=== PATIENT | female | born 1970 | race Caucasian/White ===

== ENCOUNTER → 2016-09-02 | Outpatient (CLI) | payer OTHER ==
[~2016-09-02] MED LIST: OPTIRAY 320 IV PRN
--- NOTE | 2016-09-02 09:48 | DIAGNOSTIC IMAGING REPORT ---
CT UROGRAM CLINICAL HISTORY: Hematuria. Urgency incontinence. Urinary frequency. COMPARISON STUDY: No priors. TECHNIQUE: Before and following the IV administration of 119 cc of Optiray 320, CT urogram of the abdomen and pelvis is performed from the lung bases to the proximal femora. Images are reviewed in the axial, sagittal, and coronal planes. IV contrast was administered without complication. CT DOSE: 1977.42 mGycm FINDINGS: Lung bases: The heart is normal in size and without pericardial effusion. Air trapping is suggested at the lung bases. No airspace consolidation or pleural effusion is seen. There is a tiny hiatal hernia. Liver: The contrast-enhanced liver is normal in size, contour, and attenuation. There is no intrahepatic biliary ductal dilatation. The hepatic veins and portal veins are patent. Gallbladder: Surgically absent noting clips in the gallbladder fossa. Spleen: Normal in size and attenuation. Pancreas: Unremarkable. Adrenal glands: A 3.0 cm left adrenal nodule meets CT criteria for a fat-containing adenoma. A 1.5 cm adenoma is seen in the right adrenal gland. Kidneys and ureters: The contrast enhanced kidneys are normal in size and without hydronephrosis. There is a punctate nonobstructing calculus in the upper pole of left kidney. No right-sided kidney stones are seen.. The kidneys enhance and excrete symmetrically. There is no enhancing renal cortical mass lesion identified. There is no evidence of urothelial lesion within the renal pelvis bilaterally or along the course of either ureter. Abdominal vasculature: The abdominal aorta is normal in course and caliber noting moderate and age advanced atherosclerotic calcification. Bowel: The small bowel and colon are normal in course and caliber. There is moderate colonic fecal retention. The appendix is well-visualized and normal. Peritoneum: There is no intraperitoneal free air or abdominal ascites. Lymphadenopathy: None. Pelvic viscera: The bladder, uterus, and adnexa are normal as visualized. There are bilateral ovarian follicles. Skeletal structures: No destructive bony lesions are seen. IMPRESSION: 1. There is a punctate nonobstructing left calculus. No right renal calculi are seen. 2. The kidneys are normal in size and without hydronephrosis. 3. There is no enhancing renal cortical mass. No evidence of urothelial lesion is seen in the renal pelvis bilaterally or along the course of the ureters. 4. The bladder is normal as visualized. 5. There is moderate atherosclerotic calcification of the abdominal aorta which is advanced for age. 6. Air trapping is suggested at the lung bases. 7. Additional findings as above. Electronically signed by: Renny Cheek M.D. 09/02/2016 9:47 AM Dictated Date/Time: 09/02/2016 9:40 AM
== END | disposition home or self-care (01) ==
LOC: C.CTS 08:52
PROVIDERS: ATTEND Urology
DX: R31.0 Gross hematuria (principal); N39.41 Urge incontinence; R35.0 Frequency of micturition; N20.0 Calculus of kidney

== ENCOUNTER → 2017-02-16 | Outpatient (CLI) | payer OTHER | END | disposition home or self-care (01) | LOC: C.LABSPEC 16:49 | PROVIDERS: ATTEND Urology | DX: N39.41 Urge incontinence (principal); R35.0 Frequency of micturition ==